=== PATIENT | female | born 1990 | race Caucasian/White ===

== ENCOUNTER 2017-08-24 13:20 | Outpatient (CLI) | payer BC ==
[~2017-08-24] VITALS: Ht 177.8 cm; Wt 94.8 kg
[~2017-08-24 13:20] MED LIST: BIRTH CONTROL; CET10 PO; CLIN300C99 PO; ETHI1TAB26 PO; FEXO1TAB39 PO; FLUT16SP19 NS; FLUTR; IBU600 PO; IBU800 PO; LOR5 PO; LOR5/325 PO; MULT-820 PO; NOR5/325 PO; PAN40 PO; PER PO; PHENA200 PO; PROM-100 PO; SERT25TA87 PO; SULF-170 PO
[2017-08-24 14:39] LABS: PLATELET COUNT, AUTOMATED 233 K/uL (150-450)
[2017-08-24 14:56] VITALS: BP 140/82
[2017-08-24 15:00] VITALS: BP 135/77; Ht 177.8 cm; Wt 94.8 kg
--- NOTE | 2017-08-24 18:49 | History & Physical ---
History of Present Illness Age of Patient: 27 : 2 Para or TPAL: 0 EDC per LMP: November 02, 2017 EDC per U/S: November 01, 2017 Estimated Gestational Age: 30.0 Chief Complaint Hypertension. 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 She had her BP's taken at work today, and they were 170/94 and 160/92. She's had a mild headache of only 1-2/10, and minimal RUQ abdominal pain, but denies scotomata. Fetus remains active. She arrived as requested on the OB unit for further evaluation by labs and serial BP's. History Patient's Blood Type: A Positive Rubella Status: Immune Group B Strep Screen: Unknown Obstetrical History: First resulted in a 6 week spontaneous Ab. Past Medical History: History of anxiety, takes Sertraline 75 mg daily. Has mild IBS, uses no medications. Laparoscopy for endometriosis 2008. L hand surgery after trauma 2015. Allergies: Coded Allergies: peanut (Verified Allergy, Mild, 07/15/15) cephalexin (Verified Adverse Reaction, Intermediate, rash/swelling, 07/18/15 ) Social History: Works as a physical therapist. . Denies use of alcohol, tobacco, or illicit drugs. Med Rec Home Meds Reported Medications Clindamycin Hcl (CLINDAMYCIN HCL) 300 Mg Capsule, 300 MG PO Q8H, #9 CAPSULE 07/18/15 Hydrocodone Bit/Acetaminophen (HYDROCODON-ACETAMINOPHEN 5-325) 1 Each Tablet, 1- 2 EACH PO Q4-6H Y for PAIN, #30 TAB 07/18/15 Fluticasone Prop 50 Mcg Ns (FLONASE 50 MCG NS) 16 Gm [place].susp, 2 SPRAYS NS QDAY, BOT 07/16/15 Sertraline Hcl (ZOLOFT) 25 Mg Tablet, 75 MG PO QDAY, TAB 07/15/15 Cetirizine Hcl (Zyrtec) 10 Mg Tab, 10 MG PO QDAY, 0 Refills 10/14/09 Exam General Exam Vital Signs Vital Signs Date Time Temp Pulse Resp B/P (MAP) Pulse Ox O2 Delivery O2 Flow Rate FiO2 08/24/17 15:00 98.7 78 22 135/77 (96) 93 Room Air BP's 129-149 systolic over 73-95 diastolic. General Apperance: Alert/Awake/No Acute Distress Neuro: No Gross deficits Eyes: Normal Extraocular Movement & Vison ENT: Normal, Moist Mucous Membranes Neck: No Masses Cardiovascular: Regular Rate and Rhythm Respiratory: No Respiratory Distress, Clear to Auscultation Abdomen: Gravid - Non-Tender : No CVA Tenderness Musculoskeletal: No Weakness/Pain Extremities: No Cyanosis,Clubbing or Edema, Reflexes (2-3+/4 and symmetric), No Tender Calves Integumentary: Skin Intact without Lesions or Rash Psychological: Alert & Oriented X3, Appropriate Mood & Affect Fetus FHT Category: I Medical Decision Making Data Points Result Diagram: 08/24/17 1433 08/24/17 1433 All lab studies within normal limits. VTE Prophylasis: Adult Pharmacological Contraindicati: Pt at Low Risk for VTE Mechanical Contraindications: Pt at Low Risk for VTE Assessment and Plan Problems: (1) Gestational hypertension w/o significant proteinuria in 3rd trimester Assessment & Plan: It appears that the patient's hypertension is not severe, and there is no evidence of severe features of pre-eclampsia. Will discharge home. Patient will keep her appointment with Dr. Chaidez as scheduled on August 26. Discussed warning signs again. (2) 30 weeks gestation of Copies to: BOYD GALARZA MD, MARK F MD Aug 24, 2017 18:49
== END 2017-08-24 19:10 | disposition home or self-care (01) ==
LOC: L&D 13:20 → OB 13:20 → UNDOADMOB 13:20 → OB 13:20 → L&D 19:10 → OB 19:10 → UNDODISOB 19:10 → EDSTATUS 08-25 10:26
PROVIDERS: ATTEND Obstetrics & Gynecology
DX: O13.3 Gestational [pregnancy-induced] hypertension without significant proteinuria, third trimester (principal); Z3A.30 30 weeks gestation of pregnancy
CPT/HCPCS: 36415; 59025; 81001; 82040; 82247; 82310; 82374; 82435; 82565; 82570; 82947; 83615; 84075; 84132; 84155; 84156; 84295; 84450; 84460; 84520; 85025; 99213; G0378; G0379

== ENCOUNTER 2017-09-13 15:29 | Observation (INO) | payer BC ==
[~2017-09-13] VITALS: Ht 177.8 cm; Wt 95.7 kg
[2017-09-13 15:30] VITALS: BP 177/87; BMI 30.3
[2017-09-13 16:13] LABS: PLATELET COUNT, AUTOMATED 230 K/uL (150-450)
[2017-09-13] MEDS ORDERED: FLUSH 10 ML SYR IVP SCH (17:00)
--- NOTE | 2017-09-13 18:36 | History & Physical ---
History of Present Illness Age of Patient: 27 : 2 Para or TPAL: 0010 EDC per LMP: November 02, 2017 Estimated Gestational Age: 32.6 Chief Complaint hypertension History of Present Illness The patient is a 27 year old 2 para 0010 admitted at 32 6/7 weeks estimated gestational age with an estimated date of delivery 09/13/17. Patient is admitted with complaint of hypertension. No vaginal bleeding. Good movement and occasional contractions. She has had a mild headache, no scotomata, no RUQ pain. She reported elevated blood pressures at work. She was evaluated for active labor. She had course complicated by gestational hypertension. Her record was reviewed. 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 Med Rec Home Meds Reported Medications Clindamycin Hcl (CLINDAMYCIN HCL) 300 Mg Capsule, 300 MG PO Q8H, #9 CAPSULE 07/18/15 Hydrocodone Bit/Acetaminophen (HYDROCODON-ACETAMINOPHEN 5-325) 1 Each Tablet, 1- 2 EACH PO Q4-6H Y for PAIN, #30 TAB 07/18/15 Fluticasone Prop 50 Mcg Ns (FLONASE 50 MCG NS) 16 Gm [place].susp, 2 SPRAYS NS QDAY, BOT 07/16/15 Sertraline Hcl (ZOLOFT) 25 Mg Tablet, 75 MG PO QDAY, TAB 07/15/15 Cetirizine Hcl (Zyrtec) 10 Mg Tab, 10 MG PO QDAY, 0 Refills 10/14/09 Review of Systems Constitutional: No Fever, No Weight Loss Neurological: No Syncope, No Confusion Eyes: No Vision Change, No Loss of Vision ENT: No Hearing Loss, No Sinus Congestion Cardiovascular: No Chest Pain, No Palpitations Respiratory: No Shortness of Breath, No Cough Gastrointestinal: No Nausea, No Vomiting Genitourinary: No Dysuria, No Hematuria Musculoskeletal: No Pain, No Sprain Psychiatric: No Depression, No Anxiety Exam General Exam Vital Signs Vital Signs Date Time Temp Pulse Resp B/P (MAP) Pulse Ox O2 Delivery O2 Flow Rate FiO2 09/13/17 15:30 97.5 93 18 177/87 (117) 95 Room Air General Apperance: Alert/Awake/No Acute Distress Neuro: No Gross deficits ENT: Normal Cardiovascular: Regular Rate and Rhythm Respiratory: Clear to Auscultation Abdomen: Gravid - Non-Tender, RUQ Non-Tender : Normal Musculoskeletal: No Weakness/Pain Extremities: No Edema Integumentary: Skin Intact without Lesions or Rash Psychological: Alert & Oriented X3 Uterine Contractions(Q min): 0 Fetus Heart Tones: 140 FHT Category: I Medical Decision Making Data Points Result Diagram: 09/13/17 1600 09/13/17 1600 Assessment and Plan Problems: (1) Gestational hypertension w/o significant proteinuria in 3rd trimester Assessment & Plan: labs stable blood pressures improved on rest. Celestone started for FLM. Will recheck labs in am and continue 24 hour urine. Discussed with Dr Packer, agrees with plan will observe and get serial blood pressures and may need transport for delivery at [facility] if signs or symptoms worsen. Copies to: DARLINE JUAREZ MD, JOHN MD Sep 13, 2017 18:36
[2017-09-13] MEDS ORDERED: BETAMETHASONE/ACETATE 6 MG/1ML IM SCH (19:15)
[2017-09-14] VITALS (8 sets, daily range): BP systolic 133–152; BP diastolic 72–85; Ht 177.8 cm; Wt 95.7 kg
[2017-09-14] MEDS ORDERED: PREN-127 PO (03:32)
[2017-09-14] MEDS ORDERED: SERT-184 PO (03:32)
[2017-09-14] MEDS ORDERED: CETI10CA8 PO (03:32)
[2017-09-14 06:24] LABS: PLATELET COUNT, AUTOMATED 233 K/uL (150-450)
--- NOTE | 2017-09-14 08:27 | Labor Progress Note ---
Labor Subjective Progress Notes Subjective Doing good this morning. Reports no headache, visual change, or RUQ pain. Not feeling any contractions. Feeling Movement?: Yes Vaginal Discharge/Fluid: No Bloody Show, No Clear Fluid, No Bloody Fluid, No Green Tinged Fluid, No Dark Green Fluid, No Mucous, No Small Amount, No Moderate Amount, No Large Amount, No Other Labor Pain: Mild Neurological: No Headache, No Other Eyes: No Visual Disturbances Labor Objective Vital Signs Vital Signs Date Time Temp Pulse Resp B/P (MAP) Pulse Ox O2 Delivery O2 Flow Rate FiO2 09/14/17 07:30 98.7 77 16 143/79 (100) 09/14/17 07:30 Room Air 09/13/17 15:30 95 General Exam General Appearance: Alert/Awake/No Acute Distress ENT: Normal Cardiovascular: Normal Rhythm & Peripheral Pulses : Normal Musculoskeletal: No Weakness/Pain Psychological: Alert & Oriented X3, Appropriate Mood & Affect Other Result Diagram: 09/14/17 0604 09/14/17 0604 Assessment and Plan Problems: (1) Gestational hypertension w/o significant proteinuria in 3rd trimester Assessment & Plan: Will get Betamethasone tonight. Will plan for discharge afterwards. NEISHA COOPER DO Sep 14, 2017 08:27
[2017-09-14] MEDS ORDERED: ACETAMINOPHEN 500 MG TAB PO PRN (09:10)
[2017-09-14] MEDS ORDERED: BETAMETHASONE/ACETATE 6 MG/1ML IM SCH (19:30)
--- NOTE | 2017-09-15 05:54 | Hospitalist Depart ---
Discharge Summary Reason for Hosp/Final Diag: (1) Gestational hypertension w/o significant proteinuria in 3rd trimester Status: Acute Hospital Course & Plan: Will get Betamethasone tonight. Will plan for discharge afterwards. Pt did have 384 grams of protein in her urine which is consistent with Pre-Eclampsia. Finished her betamethasone and is to follow up in the clinic 2 x/week for NST and bP checks. Departure Weight (Pounds): 211 Weight (Ounces): 0.0 Result Diagram: 09/14/1760309/14/17603 Condition: No Change Discharge: Home Discharge Instructions Home Meds Reported Medications Sertraline Hcl (SERTRALINE HCL) 50 Mg Tablet, 1 TAB PO QDAY, TAB 09/14/17 Cetirizine Hcl (ZYRTEC) 10 Mg Capsule, 10 MG PO QDAY, CAPSULE 09/14/17 Vits W-Ca,Fe,Fa(<1MG) ( VITAMINS) 1 Each Tablet, 1 EACH PO DAILY, TAB 09/14/17 Discontinued Reported Medications Clindamycin Hcl (CLINDAMYCIN HCL) 300 Mg Capsule, 300 MG PO Q8H, #9 CAPSULE 07/18/15 Hydrocodone Bit/Acetaminophen (HYDROCODON-ACETAMINOPHEN 5-325) 1 Each Tablet, 1- 2 EACH PO Q4-6H Y for PAIN, #30 TAB 07/18/15 Fluticasone Prop 50 Mcg Ns (FLONASE 50 MCG NS) 16 Gm [place].susp, 2 SPRAYS NS QDAY, BOT 07/16/15 Sertraline Hcl (ZOLOFT) 25 Mg Tablet, 75 MG PO QDAY, TAB 07/15/15 Cetirizine Hcl (Zyrtec) 10 Mg Tab, 10 MG PO QDAY, 0 Refills 10/14/09 Diet: Regular Activity: As Tolerated Special Instructions: Follow up at clinic with twice weekly appointments for nonstress tests and blood pressure checks each visit. Venous Thromboembolism VTE Risk Physician Assess for VTE Risk: Yes Patient's VTE Risk: Low VTE Diagnostic Test 2 Days Prior to Admit: No Antithrombotics Is Pt On Any Antithrombotics?: No NEISHA COOPER DO Sep 15, 2017 05:54
== END 2017-09-14 18:19 | disposition home or self-care (01) ==
LOC: INTOOBSV 15:29 → OB 15:29
PROVIDERS: ADMIT Obstetrics & Gynecology; ATTEND Obstetrics & Gynecology
DX: O13.3 Gestational [pregnancy-induced] hypertension without significant proteinuria, third trimester (principal)
CPT/HCPCS: 36415; 59025; 81001; 82570; 83615; 84156; 84550; 85025; 96372; G0378; G0379; J0702; 82040; 82247; 82310; 82374; 82435; 82565; 82947; 84075; 84132; 84155; 84295; 84450; 84460; 84520

== ENCOUNTER 2017-10-06 08:44 | Inpatient (IN) | payer BC ==
[~2017-10-06] VITALS: Ht 171.4 cm; Wt 96.2 kg
[~2017-10-06 08:44] MED LIST changes: +CETI10CA8 PO; +PREN-127 PO; +SERT-184 PO
[2017-10-06 09:30] VITALS: BP 155/91; Ht 171.4 cm; Wt 96.2 kg
[2017-10-06] MEDS ORDERED: ACETAMINOPHEN 500 MG TAB PO ONE (10:50)
[2017-10-06] MEDS ORDERED: FAMOTIDINE(*) 20MG/50ML PREMIX 50 ML IVPB PRN (12:42)
[2017-10-06] MEDS ORDERED: OXYTOCIN 30 UNIT/D5LR 500 ML 500 ML IV PRN (12:42)
[2017-10-06] MEDS ORDERED: ceFAZolin(*) 2GM/D5W 50ML 50 ML IVPB PRN (12:42)
[2017-10-06] MEDS ORDERED: MISOPROSTOL 25 MCG CAP PV PRN (12:45)
[2017-10-06] MEDS ORDERED: FLUSH 10 ML SYR IVP PRN (12:45)
[2017-10-06] MEDS ORDERED: LIDOCAINE/SOD BICARB 8.4% SYR SC PRN (12:45)
[2017-10-06] MEDS ORDERED: DINOPROSTONE 10 MG INSERT PV ONE (12:45)
[2017-10-06] MEDS ORDERED: METOCLOPRAMIDE 10 MG/2 ML SDV IVP PRN (12:45)
[2017-10-06] MEDS ORDERED: LIDOCAINE 1% LOCAL 300 MG/30ML INJ PRN (12:45)
--- NOTE | 2017-10-06 12:53 | History & Physical ---
History of Present Illness EDC per LMP: November 02, 2017 Estimated Gestational Age: 36.1 Chief Complaint Gush of fluid History of Present Illness 27yo at 36w1d presents for possible ROM this morning at 0008hrs. She reports some occasional UCx. She was diagnosed with preeclampsia weeks ago, initial GHTN at 30 weeks. She was being followed with labs and NSTs. She developed a headache last night that has not gone away. She has some blurry vision, but no spots in her vision. No abdominal pain outside of her lower pelvic cramping. No VB. PNR reviewed. PNC by [facility]. 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 Med Rec Home Meds Reported Medications Sertraline Hcl (SERTRALINE HCL) 50 Mg Tablet, 1 TAB PO QDAY, TAB 09/14/17 Cetirizine Hcl (ZYRTEC) 10 Mg Capsule, 10 MG PO QDAY, CAPSULE 09/14/17 Vits W-Ca,Fe,Fa(<1MG) ( VITAMINS) 1 Each Tablet, 1 EACH PO DAILY, TAB 09/14/17 Review of Systems Constitutional: No Fever Eyes: Vision Change Cardiovascular: No Chest Pain Respiratory: No Shortness of Breath, No Cough Gastrointestinal: No Nausea, No Vomiting, No Diarrhea Genitourinary: No Dysuria Musculoskeletal: No Pain Psychiatric: Anxiety, No Depression Exam General Exam Vital Signs VS reviewed General Apperance: Alert/Awake/No Acute Distress Neuro: No Gross deficits Eyes: Normal Extraocular Movement & Vison Cardiovascular: Regular Rate and Rhythm Respiratory: No Respiratory Distress, Clear to Auscultation Abdomen: Gravid - Non-Tender : Normal Musculoskeletal: No Weakness/Pain Extremities: No Cyanosis,Clubbing or Edema Integumentary: Skin Intact without Lesions or Rash Psychological: Alert & Oriented X3, Appropriate Mood & Affect Cervical Dialation: 0 Cervical Effacement (%): 0 Cervical Consistency: Firm Cervical Position: Posterior Station: -3 Presentation: Vertex Uterine Contractions(Q min): 0 Fetus Feeling Movement?: Yes FHT Category: I Medical Decision Making Data Points Result Diagram: 10/06/1734 10/06/1734 Pre-Admit Course Medical Record Review: Yes Assessment and Plan Problems: (1) Severe pre-eclampsia in third trimester Assessment & Plan: 27yo at 36w1d presents for possible ROM. Amnisure is negative. However, she does have preeclampsia with a constant headache despite Tylenol, hydration and food. I discussed her case with Dr. Martinez who recommends proceeding with delivery due to headache. Labs are WNL and BP is not severe. Will NOT start magnesium for now, but may need to add later if severe BP or headache is worsening. GBS is unknown, so will do penicillin in active labor. Will start with Cervadil for now. (2) 36 weeks gestation of SANTO DURHAM MD Oct 06, 2017 12:53
--- NOTE | 2017-10-06 13:54 | Labor Progress Note ---
Labor Subjective Progress Notes Subjective Pt is feeling well. Some mild cramping. Still with WALKER but not worsening and no other symptoms. Labor Objective Cervical Dialation: 1 Cervical Effacement (%): 60 Cervical Consistency: Moderate Cervical Position: Posterior Station: -1 Presentation: Vertex Uterine Contractions(Q min): 0 Fetus FHT Category: I General Exam General Appearance: Alert/Awake/No Acute Distress Psychological: Alert & Oriented X3, Appropriate Mood & Affect Other Result Diagram: 10/06/17 0934 10/06/17933 Assessment and Plan Problems: (1) Severe pre-eclampsia in third trimester Assessment & Plan: Cervadil placed by myself just now. Cvx: 60/-2/mod/ posterior. (2) 36 weeks gestation of SANTO DURHAM MD Oct 06, 2017 13:54
[2017-10-06] MEDS ORDERED: ZOLPIDEM TARTRATE 10 MG TAB PO PRN (20:55)
--- NOTE | 2017-10-06 21:01 | Labor Progress Note ---
Labor Subjective Progress Notes Subjective Pt is feeling some cramping. She has no VB/LOF. She is feeling well except still some headache. Labor Objective Vital Signs Vital Signs Date Time Temp Pulse Resp B/P (MAP) Pulse Ox O2 Delivery O2 Flow Rate FiO2 10/06/17 09:30 97.2 86 18 155/91 (112) 96 Room Air Fetus FHT Category: I General Exam General Appearance: Alert/Awake/No Acute Distress Cardiovascular: Normal Rhythm & Peripheral Pulses, Regular Rate and Rhythm Respiratory: No Respiratory Distress Abdomen: Gravid - Non-Tender Extremities: No Cyanosis,Clubbing or Edema, Reflexes (1+ DTR), No Tender Calves , No Clonus Psychological: Alert & Oriented X3, Appropriate Mood & Affect Other Result Diagram: 10/06/1793310/06/17933 Assessment and Plan Problems: (1) Severe pre-eclampsia in third trimester Assessment & Plan: Continue with Cervadil until 12hrs - 2am. Then will remove and reassess cervix. BP is looking good so far. Monitor closely. Pt had an anaphylactic reaction to Cephalexin two years ago, therefore, will use vancomycin for GBS prophylaxis. (2) 36 weeks gestation of SANTO DURHAM MD Oct 06, 2017 21:01
[2017-10-06] MEDS ORDERED: LR(*) 1000 ML BAG 1,000 ML ONE (22:33)
[2017-10-07] MEDS ORDERED: VANCOMYCIN 1 GM ADDVIAL 1 GM in NS(*) 0.9% 250 ML ADDVAN BAG 250 ML IVPB SCH
[2017-10-07] MEDS ORDERED: IV BOLUS 500 ML IVSOL IV ONE (02:00)
[2017-10-07] MEDS: fentaNYL CITR 100 MCG/2 ML AMP IVP PRN ×2 (02:05→03:14)
[2017-10-07] MEDS ORDERED: ONDANSETRON 4 MG/2 ML VIAL IVP PRN (02:15)
[2017-10-07] MEDS ORDERED: fentaNYL CITR 100 MCG/2 ML AMP IT PRN (02:40)
[2017-10-07] MEDS ORDERED: ePHEDrine 25 MG/5 ML DISP.SYR IVP PRN (02:40)
[2017-10-07] MEDS ORDERED: FENTANYL/ROPIVACAINE 100 ML BAG EPI PRN (02:40)
[2017-10-07] MEDS ORDERED: BUPIVACAINE 0.5% INJ 30ML VIAL EPI PRN (02:40)
[2017-10-07] MEDS ORDERED: LIDOCAINE/PF 2% 200MG/10ML AMP 200 MG/10 ML AMPUL EPI PRN (02:40)
[2017-10-07] MEDS ORDERED: LIDO/EPI 2% MPF 1:200,000 20ML EPI PRN (02:40)
[2017-10-07] MEDS ORDERED: BUPIVACAINE 0.25% MPF INJ EPI PRN (02:40)
--- NOTE | 2017-10-07 04:14 | Anesthesia OB Pre-Anes Eval ---
History of Present Illness Anesthesia Start Date: Oct 07, 2017 Anesthesia Start Time: 03:15 OB Anesthesia Diagnosis: induction - medical Current Complication: gestational hypertention Complications: None known EDC: November 02, 2017 : 2 Para: 0 Vital Signs: Vital Signs Date Time Temp Pulse Resp B/P (MAP) Pulse Ox O2 Delivery O2 Flow Rate FiO2 10/06/17 09:30 97.2 86 18 155/91 (112) 96 Room Air Pain Ratin Heart Tones: WNL Result Diagram: 10/07/17 0256 10/07/17 0256 Height (Inches): 67.50 Weight (Pounds): 212 BMI Calculated: 32.71 Past Medical History Surgical History: other (Laparoscopy) Previous Anesthesia: general Attended Childbirth Classes?: No Hx Anesthesia Reactions: No Hx Family Anesthesia Reaction: No Current Medications: pain medication (Fentenyl) Home Meds Reported Medications Sertraline Hcl (SERTRALINE HCL) 50 Mg Tablet, 1 TAB PO QDAY, TAB 09/14/17 Cetirizine Hcl (ZYRTEC) 10 Mg Capsule, 10 MG PO QDAY, CAPSULE 09/14/17 Vits W-Ca,Fe,Fa(<1MG) ( VITAMINS) 1 Each Tablet, 1 EACH PO DAILY, TAB 09/14/17 Allergies: Coded Allergies: peanut (Verified Allergy, Mild, 07/15/15) cephalexin (Verified Adverse Reaction, Intermediate, rash/swelling, 07/18/15 ) Anesthesia OB ROS Neurological: No migraines/headaches, No seizures, No neuropathy Eyes ROS: other (wearing glasses) ENT: Denies Tooth caps, Denies Loose teeth, Denies Chipped teeth, Denies Dentures, Denies Bridges, Denies Retainers, Denies Veneers, Denies Implants, Denies Tongue ring Pulmonary: No asthma, No smoker (pks/day/yrs) Airway Class: ll Cardiovascular ROS: No edema, No arrhythmia GI ROS: clear liquids Last Solids Date: Oct 06, 2017 Last Solids Time: 22:00 ROS: No Herpes, No STD(s), No Liver Disease, No Renal Disease Endocrine ROS: No diabetes, No gestational diabetes, No thyroid disorder Musculoskeletal ROS: No low back pain, No low back injury, No scoliosis ASA Classification: 2 Assessment and Plan Anesthesia Plan: CSE Assessment Past Medical, Surgical, Family and Obstetric Histories reviewed. Please see ACOG chart. Epidural anesthesia risks, complications and benefits explained to patient's satisfaction for labor and vaginal delivery and/or section. General anesthesia risks and benefits explained to patient's satisfaction. Questions invited, none asked. IV Fentenyl repeated so that pt. is able to tolerate maintaining position for epidural. AISLINN DOMINIQUE CRNA Oct 07, 2017 04:14
--- NOTE | 2017-10-07 04:19 | Procedure Note ---
Anesthetic Placement Note Anesthesia Plan: CSE Permit for Anesthesia Signed: Yes Anesthesia Technique: Patient Sitting Anesthesia Prep: Chlorhexidine Interspace: L 3-4 Local Anesthetic: 1% Lidocaine, 25 Gauge Needle Amount Local - cc's: 2 Anesthesia Needle: 17g Touhy/Schliff Anesthesia Attempts: 1 Loss of Resistance: Air Depth of JIAN (cm): 6 Epidural Needle Placement: No CSF, No Blood, No Parasthesia Intrathecal Needle: 27 Gauge Pencan Cerebral Spinal Fluid: Yes, Clear Catheter Insertion (cm): 8 Catheter Type: [place] - Spring Wound Epidural Dressing: Tegaderm, Tape, Adhesive [place] Anesthesia Tray: Lot Number ([id number]), Expiration Date (2018-04-12), Reference Number ([id number]) Anesthesia Medications: Intrathecal Dose: mcg Fentanyl (18), mg Marcaine MPF (1.75), Time (0327) Epidural Test Dose: 1.5 Lido/Epi (1:200,000), Dose - mL (2), Time (0350), Negative Epidural Loading Dose: 0.2% Ropivicaine, With Fentanyl 2mcg/ml, Dose - ml (5), Time (0351) Epidural Infusion: 0.2% Ropivicaine, With Fentanyl 2mcg/ml, Start Time: (0351) Epidural Pump Setting: Bolus Dose - mL (5), Lockout - Minutes (20), Maintenance Rate - mL/hr (6), Maximum per Hour - mL (21) Complications: None Comment: Vital signs stable. Patient comfortable and condition stable. Comfortable within less than 10 minutes. States she only slightly feels contractions. AISLINN DOMINIQUE CRNA Oct 07, 2017 04:19
--- NOTE | 2017-10-07 04:29 | Anesthesia Progress Note ---
Progress/Maintenance Anesthesia Note Date: Oct 07, 2017 Anesthesia Note Time: 04:25 Pain Intensity: 0 Pump: On Pump Rate (ML/HR): 6 Sensory Level: T-12 Motor Level: Bending Knees-Bilateral Dilatation: 2 Position: Left, Tilt Assessment and Plan Assessment Drinking fluids and visiting with friend. Encouraged to sleep. States she does not feel any contractions. AISLINN DOMINIQUE CRNA Oct 07, 2017 04:29
[2017-10-07] MEDS ORDERED: LR(*) 1000 ML BAG 1,000 ML IV PRN (05:10)
--- NOTE | 2017-10-07 07:15 | Labor Progress Note ---
Labor Subjective Progress Notes Subjective Pt was uncomfortable so got epidural and now she feels much better. Still with some headache but not worsening. No other preeclampsia symptoms. Labor Objective Vital Signs Vital Signs Date Time Temp Pulse Resp B/P (MAP) Pulse Ox O2 Delivery O2 Flow Rate FiO2 10/06/17 09:30 97.2 86 18 155/91 (112) 96 Room Air Vaginal Discharge/Fluid?: Clear Fluid Cervical Dialation: 4 Cervical Effacement (%): 90 Cervical Consistency: Soft Cervical Position: Mid Station: -1 Presentation: Vertex Uterine Contractions(Q min): 3 Uterine Contraction Strength: Moderate UC Resting Tone: Soft Fetus FHT Category: I General Exam General Appearance: Alert/Awake/No Acute Distress Cardiovascular: Regular Rate and Rhythm Respiratory: No Respiratory Distress Abdomen: Gravid - Non-Tender Extremities: No Cyanosis,Clubbing or Edema, No Clonus Integumentary: Skin Intact without Lesions or Rash Psychological: Alert & Oriented X3, Appropriate Mood & Affect Other Result Diagram: 10/07/17 0256 10/07/17 0256 Assessment and Plan Problems: (1) Severe pre-eclampsia in third trimester Assessment & Plan: Pt is now favorable after one dose of Cytotec. She experienced SROM right after my evaluation. Clear fluid. Vancomycin to be initiated as soon as available from pharmacy. (2) 36 weeks gestation of SANTO DURHAM MD Oct 07, 2017 07:15
[2017-10-07] MEDS ORDERED: VANCOMYCIN 1 GM ADDVIAL 1 GM in NS(*) 0.9% 250 ML ADDVAN BAG 250 ML IVPB ONE (07:45)
--- NOTE | 2017-10-07 10:08 | Anesthesia Progress Note ---
Progress/Maintenance Anesthesia Note Date: Oct 07, 2017 Anesthesia Note Time: 10:00 Pain Intensity: 0 Pump: On Pump Rate (ML/HR): 6 Sensory Level: T-12 Motor Level: Bending Knees-Bilateral Dilatation: 8 Position: Right, Tilt Assessment and Plan Assessment States she feels only "pressure". Able to move her legs well and has no problem turning side to side. AISLINN DOMINIQUE CRNA Oct 07, 2017 10:08
[2017-10-07] MEDS ORDERED: NS(*) 0.9% 1000 ML BAG 1,000 ML PV PRN (10:33)
--- NOTE | 2017-10-07 10:36 | Labor Progress Note ---
Labor Subjective Progress Notes Subjective comfortable with epidural Vaginal Discharge/Fluid: No Bloody Show Labor Pain: Comfortable Labor Objective Vital Signs Vital Signs Date Time Temp Pulse Resp B/P (MAP) Pulse Ox O2 Delivery O2 Flow Rate FiO2 10/06/17 09:30 97.2 86 18 155/91 (112) 96 Room Air Cervical Dialation: 8 Cervical Effacement (%): 90 Cervical Consistency: Soft Cervical Position: Anterior Station: 0 Presentation: Vertex Uterine Contractions(Q min): 4 Fetus Heart Tones: 150 Heart Tone Variabilty: Moderate FHT Decelerations: Variable FHT Category: II Other Result Diagram: 10/07/17 0256 10/07/17 0256 Assessment and Plan Problems: (1) 36 weeks gestation of Assessment & Plan: variable decelerations with fhts, iupc placed garth amnioinfuse DARLINE JUAREZ MD Oct 07, 2017 10:36
--- NOTE | 2017-10-07 14:14 | Anesthesia Progress Note ---
Progress/Maintenance Anesthesia Note Date: Oct 07, 2017 Anesthesia Note Time: 14:15 Pain Intensity: 5 Pump: On Pump Rate (ML/HR): 6 Sensory Level: T-12 Motor Level: Bending Knees-Bilateral Dilatation: 9 Position: Right, Tilt Drug Bolus: 0.5% Marcaine (4 ml), Other (Fentenyl 85 mcgs) Assessment and Plan Assessment Pt. states that is feeling more pain in left groin. RN pushed her epidural pump button and pt. feels that did not provide any relief. Manual bolus given. AISLINN DOMINIQUE CRNA Oct 07, 2017 14:14
[2017-10-07] MEDS ORDERED: HYDROCORTISONE 2.5% CR 30GM TB PR PRN (16:05)
[2017-10-07] MEDS ORDERED: HYDROmorphone HCL 2 MG TAB PO PRN (16:05)
[2017-10-07] MEDS ORDERED: LANOLIN OINT 7 GM TUBE TP PRN (16:05)
[2017-10-07] MEDS ORDERED: ACETAMINOPHEN 325 MG TAB PO PRN (16:05)
[2017-10-07] MEDS ORDERED: MAGNESIUM HYDROXIDE* 30ML UDCP PO PRN (16:05)
--- NOTE | 2017-10-07 16:05 | OB Delivery Note ---
Delivery Note Vaginal Delivery Type: Spont. Vaginal Delivery Delivery Date: Oct 07, 2017 Delivery Time: 15:33 Estimated Gestational Age(wks): 36.1 Delivery Anesthesia: Epidural Sex: Male Weight (gms): 2572 [place] Apgars: 1 Minute (8), 5 Minute (9) Repair Needed: Laceration, Superficial, Vaginal Estimated Blood Loss: 400 Notes: IOL FOR PREECLAMPSIA, HAD HEADACHE. CERVADIL AND PITOCIN USED FOR AUGMENTATION. AROM, CLEAR FLUID. PROGRESSED TO COMPLETE ALLOWED TO PUSH AFTER LABORING DOWN AND PUSHED EFFECTIVELY. DELIVERED OVER INTACT PERINEUM. REPAIRED WITH 3-0 VICRYL NO COMPLICATIONS. Air Twist Operator in Attendence: Yes Copies to: DARLINE JUAREZ MD, JOHN MD Oct 07, 2017 16:05
--- NOTE | 2017-10-07 16:18 | Anesthesia Progress Note ---
Progress/Maintenance Anesthesia Note Date: Oct 07, 2017 Anesthesia Note Time: 15:45 Pain Intensity: 0 Pump: Off Motor Level: Bending Knees-Bilateral Dilatation: 10 Position: Semi-Fowlers Drug Bolus: 0.5% Marcaine (4 ml) Assessment and Plan Assessment Vocal with pushing with contractions, but pt. states it helps her push. Excellent tolerance of delivery and repair. Patient instructed the first ambulation is to be with help of nursing staff. Instructed to preform deep knee bends at bedside before walking. Empty syringe attached to epidural catheter and RN agrees to remove with pt's ambulation. Anesthesia Stop Day: Oct 07, 2017 Anesthesia Stop Time: 15:45 AISLINN DOMINIQUE CRNA Oct 07, 2017 16:18
[2017-10-07] MEDS: IBUPROFEN 800 MG TAB PO SCH (17:33)
[2017-10-07] MEDS ORDERED: DEXTROSE 37.5 GM GEL..GRAM. PO PRN (18:05)
[2017-10-07] MEDS ORDERED: LABETALOL HCL 100 MG/20ML VIAL IVP PRN (19:15)
[2017-10-07 19:30] VITALS: BP 138/78
[2017-10-07] MEDS: GLYCERIN/WITCH HAZEL LEAF 1 PK TP PRN (21:06)
[2017-10-07] MEDS: BENZOCAINE 20% 60 ML BTL TP PRN (21:06)
[2017-10-07] MEDS: DOCUSATE CALCIUM 240 MG CAP PO SCH (21:56)
[2017-10-07] MEDS ORDERED: LR(*) 1000 ML BAG 1,000 ML ONE (21:59)
[2017-10-07 22:30] VITALS: BP 115/66
[2017-10-08] VITALS (7 sets, daily range): BP systolic 121–143; BP diastolic 64–85
[2017-10-08] MEDS: IBUPROFEN 800 MG TAB PO SCH ×3 (01:21→16:47)
--- NOTE | 2017-10-08 07:38 | OB/GYN Progress Note ---
OB Subjective Progress Notes Subjective Pain controlled, Tolerating diet and activity. Baby . Normal lochia. GI: POS Flatus, NEG Nausea, NEG Vomiting Neurological: No Headache OB Objective Physical Exam Vital Signs Date Time Temp Pulse Resp B/P (MAP) Pulse Ox O2 Delivery O2 Flow Rate FiO2 10/08/17 05:00 97.0 70 18 124/70 (88) Room Air 10/08/17 00:15 92 General Appearance: Alert/Awake/No Acute Distress Neurological: No Gross deficits Eyes: Normal Extraocular Movement & Vison Cardiovascular: Regular Rate and Rhythm Respiratory: No Respiratory Distress, Clear to Auscultation Abdomen: Fundus Firm Extremities: No Cyanosis,Clubbing or Edema, No Clonus, No Edema Integumentary: Skin Intact without Lesions or Rash Psychological: Alert & Oriented X3, Appropriate Mood & Affect Result Diagram: 10/07/17 0256 10/07/17 0256 Assessment and Plan Problems: (1) 36 weeks gestation of (2) care following vaginal delivery Assessment & Plan: Pain controlled, Tolerating diet and activity. Baby . Normal lochia. DARLINE JUAREZ MD Oct 08, 2017 07:38
[2017-10-08] MEDS ORDERED: IBUP800T37 PO (08:16)
[2017-10-08] MEDS ORDERED: HYDR2TAB4 PO (08:16)
--- NOTE | 2017-10-08 08:17 | OB/GYN Discharge Summary ---
Discharge Summary Reason for Hosp/Final Diag: (1) 36 weeks gestation of (2) care following vaginal delivery Hospital Course & Plan: IOL, vag delivery on day 2, Pain controlled, Tolerating diet and activity. Baby . Normal lochia. Lates Vital Signs Vital Signs Date Time Temp Pulse Resp B/P (MAP) Pulse Ox O2 Delivery O2 Flow Rate FiO2 10/08/17 05:00 97.0 70 18 124/70 (88) Room Air 10/08/17 00:15 92 Weight (Pounds): 212 Weight (Ounces): 0.0 Result Diagram: 10/08/17 0700 10/08/17 07 Condition: Improved Discharge: Home, Self Usp Meds Active Scripts Ibuprofen (IBUPROFEN) 800 Mg Tablet, 1 TAB PO Q8H, #30 TAB 0 Refills Take with food every 8 hours. Prov:DARLINE ADAMS MD 10/08/17 Hydromorphone Hcl (HYDROMORPHONE HCL) 2 Mg Tablet, 2-4 MG PO Q4H for PAIN, #20 TAB 0 Refills Prov:DARLINE ADAMS MD 10/08/17 Reported Medications Sertraline Hcl (SERTRALINE HCL) 50 Mg Tablet, 1 TAB PO QDAY, TAB 09/14/17 Cetirizine Hcl (ZYRTEC) 10 Mg Capsule, 10 MG PO QDAY, CAPSULE 09/14/17 Vits W-Ca,Fe,Fa(<1MG) ( VITAMINS) 1 Each Tablet, 1 EACH PO DAILY, TAB 09/14/17 Follow up with: Dr. Adams [phone] Follow up in: 6 wks PP or PO, 5-7 days Discharge Diet: As Tolerates Discharge Activity: Pelvic Rest Copies to: DARLINE ADAMS MD, JOHN MD Oct 08, 2017 08:17
[2017-10-08] MEDS: DOCUSATE CALCIUM 240 MG CAP PO SCH ×2 (08:36→20:20)
[2017-10-08] MEDS: MULTIVITAMINS (PRENATAL) TAB PO SCH (08:36)
--- NOTE | 2017-10-08 11:01 | Anesthesia Post Eval Note ---
Anesthesia Post Eval Note Stable, afebrile. Pt able to participate in Eval: Yes Cardiovascular Status: Satisfactory Respiratory Status: Satisfactory Pain Managment: Satisfactory PO Nausea/Vomiting: Satisfactory Temperature Management: Satisfactory Mental Status: Satisfactory, Alert, Oriented X3 Post-Op Hydration Status: Satisfactory, Tolerating PO Well, Voiding w/o Difficulty Anesthesia Type: CSE Anesthesia Tolerance: Ambulatory without symptoms PDPH, no apparent anesthesia complications. SUSAN COREA CRNA Oct 08, 2017 11:01
[2017-10-08] MEDS ORDERED: MEASLES,MUMP,RUBELLA VAC 0.5ML SUBQ ONE (16:05)
[2017-10-08] MEDS ORDERED: INFLUENZA VIRUS VAC 0.5 ML SYR IM ONLY ONE (16:05)
[2017-10-08] MEDS ORDERED: DIPHTH/TETANUS/ACEL. PERTUSSIS IM ONLY ONE (16:05)
[2017-10-09 01:06] VITALS: BP 144/80
[2017-10-09] MEDS: IBUPROFEN 800 MG TAB PO SCH ×3 (01:08→16:30)
[2017-10-09 04:05] VITALS: BP 138/73
[2017-10-09 07:50] VITALS: BP 134/82
[2017-10-09] MEDS: MULTIVITAMINS (PRENATAL) TAB PO SCH (09:05)
[2017-10-09] MEDS: DOCUSATE CALCIUM 240 MG CAP PO SCH (09:05)
--- NOTE | 2017-10-09 10:05 | OB/GYN Progress Note ---
OB Subjective Progress Notes Subjective Pain controlled, Tolerating diet and activity. Baby . Normal lochia. GI: POS Flatus, NEG Nausea, NEG Vomiting : Voiding Well Pain: Mild OB Objective Physical Exam Vital Signs Date Time Temp Pulse Resp B/P (MAP) Pulse Ox O2 Delivery O2 Flow Rate FiO2 10/09/17 04:05 72 18 138/73 (94) Room Air 10/09/17 01:06 97.4 10/08/17 00:15 92 Intake and Output 10/10/17 07:00 Intake Total 120 ml Balance 120 ml Intake Oral 120 ml General Appearance: Alert/Awake/No Acute Distress Neurological: No Gross deficits Eyes: Normal Extraocular Movement & Vison Cardiovascular: Regular Rate and Rhythm Respiratory: No Respiratory Distress, Clear to Auscultation Abdomen: Fundus Firm Extremities: No Cyanosis,Clubbing or Edema, No Clonus, No Edema Integumentary: Skin Intact without Lesions or Rash Psychological: Alert & Oriented X3, Appropriate Mood & Affect Result Diagram: 10/08/17 0700 10/08/17 0700 Assessment and Plan Problems: (1) 36 weeks gestation of (2) care following vaginal delivery Assessment & Plan: Pain controlled, Tolerating diet and activity. Baby . Normal lochia. DARLINE JUAREZ MD Oct 09, 2017 10:05
[2017-10-09 13:20] VITALS: BP 151/93
[2017-10-09 13:42] VITALS: BP 167/94
[2017-10-09] MEDS ORDERED: NIFEdipine XL 30 MG TABCR PO ONE (13:45)
[2017-10-09 15:20] VITALS: BP 145/85
[2017-10-09] MEDS: BENZOCAINE 20% 60 ML BTL TP PRN (16:30)
[2017-10-09] MEDS: GLYCERIN/WITCH HAZEL LEAF 1 PK TP PRN (16:30)
== END 2017-10-09 16:30 | disposition home or self-care (01) | DRG 775 ==
LOC: OB 08:44
PROVIDERS: ADMIT Obstetrics & Gynecology; ATTEND Obstetrics & Gynecology
PROC: 10907ZC Drainage of Amniotic Fluid, Therapeutic from Products of Conception, Via Natural or Artificial Opening (ICD-10-PCS; 2017-10-06)
PROC: 10E0XZZ Delivery of Products of Conception, External Approach (ICD-10-PCS; principal; 2017-10-07)
PROC: 0HQ9XZZ Repair Perineum Skin, External Approach (ICD-10-PCS; 2017-10-07)
DX: O14.14 Severe pre-eclampsia complicating childbirth (principal); O76 Abnormality in fetal heart rate and rhythm complicating labor and delivery; O99.344 Other mental disorders complicating childbirth; O99.62 Diseases of the digestive system complicating childbirth; O70.0 First degree perineal laceration during delivery; F41.9 Anxiety disorder, unspecified; K58.9 Irritable bowel syndrome, unspecified; Z37.0 Single live birth; Z3A.36 36 weeks gestation of pregnancy; Z88.8 Allergy status to other drugs, medicaments and biological substances; Z91.010 Allergy to peanuts
CPT/HCPCS: 36415; 82040; 82247; 82310; 82374; 82435; 82565; 82947; 84075; 84112; 84132; 84155; 84295; 84450; 84460; 84520; 85027; 86850; 86900; 86901; 87081; A4338; A4344; C1726; J2405; J2590; J3010; J3370; J3490; J7030; J7050; J7120

== ENCOUNTER → 2018-01-30 | Outpatient (REF) | payer BC ==
[2017-10-06 09:30] VITALS: BMI 32.7
[~2018-01-30] MED LIST changes: +HYDR2TAB4 PO; +IBUP800T37 PO
== END ==
LOC: ZZSENDIN 10:22
PROVIDERS: ATTEND Ophthalmology
DX: C44.112 Basal cell carcinoma of skin of right eyelid, including canthus (principal)
CPT/HCPCS: 88305

== ENCOUNTER → 2018-03-23 | Outpatient (CLI) | payer BC ==
[2017-10-06 09:30] VITALS: BMI 32.7
--- NOTE | 2018-03-23 10:29 | RADIOLOGY IMAGING REPORT ---
FACILITY: [facility] - [place] PATIENT NAME: Breanne Louie : 1990 MR: [id number] V: [id number] EXAM DATE: ORDERING PHYSICIAN: TIFFANIE LACEY TECHNOLOGIST: Location: [facility] [place] Patient: Breanne Louie : 1990 Visit/Account:[id number] Date of Sevice: 03/23/2018 GALLBLADDER HISTORY: Intermittent pain for one month, worse after eating COMPARISON: CT abdomen pelvis November 16, 2013 FINDINGS: Gallbladder: At least one shadowing stone is identified within the gallbladder. The gallbladder wall does not appear thickened and there is a negative Dave sign by technologist notation Liver: There is increased echogenicity throughout liver which can be seen with fatty infiltration or other infiltrative process Common duct: Normal, 2.6 mm diameter. Pancreas: Partially obscured by bowel, visualized aspects unremarkable. Right kidney: Right kidney appears unremarkable measuring 10.8 cm in length Upper abdominal aorta and IVC: Patent. Ascites: None visualized. IMPRESSION: Cholelithiasis although no evidence of gallbladder wall thickening or positive Dave sign or biliary ductal dilatation Mild increased echogenicity throughout liver which can be seen with fatty infiltration or other infil trative process Report Dictated By: Mckenzie Munoz MD at 03/23/2018 9:53 AM Report E-Signed By: Mckenzie Munoz MD at 03/23/2018 10:25 AM WSN:[id number]
== END ==
LOC: US 02:27
PROVIDERS: ATTEND Obstetrics & Gynecology
DX: K80.20 Calculus of gallbladder without cholecystitis without obstruction (principal)
CPT/HCPCS: 76705

== ENCOUNTER 2018-05-25 03:07 | Day surgery (SDC) | payer BC ==
[2017-10-06 09:30] VITALS: Ht 177.8 cm; Wt 85.3 kg
[2018-05-25] VITALS (12 sets, daily range): BP systolic 83–128; BP diastolic 49–79
[~2018-05-25] VITALS: Ht 177.8 cm; Wt 85.3 kg
[~2018-05-25 03:07] MED LIST changes: +LAN30PT PO
[2018-05-25] MEDS ORDERED: LEVOFLOXACIN/D5W*500 MG/100 ML 100 ML IVPB ONE (11:15)
[2018-05-25] MEDS ORDERED: metroNIDAZOLE* 500MG/100ML BAG 100 ML IVPB ONE (11:15)
[2018-05-25] MEDS ORDERED: PREGABALIN 150 MG CAPSULE PO ONE (11:15)
[2018-05-25] MEDS ORDERED: INDOCYANINE GREEN 25 MG VIAL IVP ONE (11:15)
[2018-05-25] MEDS ORDERED: AMPICILLIN/SULBACT (*) 3 GM VL 3 GM in NS(*) 0.9% 100 ML BAG 100 ML IVPB ONE (11:15)
[2018-05-25] MEDS ORDERED: FAMOTIDINE 20 MG TAB PO ONE (11:15)
[2018-05-25] MEDS ORDERED: MIDAZOLAM 2 MG/2 ML VIAL IVP PRN (11:15)
[2018-05-25] MEDS ORDERED: LIDOCAINE/SOD BICARB 8.4% SYR ID ONE (11:15)
[2018-05-25] MEDS ORDERED: ACETAMINOPHEN 500 MG TAB PO ONE (11:15)
[2018-05-25] MEDS ORDERED: fentaNYL CITR 250 MCG/5 ML AMP ONE (12:47)
[2018-05-25] MEDS ORDERED: DEXAMETHASONE SOD PHOS 10MG/ML ONE (12:49)
[2018-05-25] MEDS ORDERED: ONDANSETRON 4 MG/2 ML VIAL ONE ×2 (12:49→18:00)
[2018-05-25] MEDS ORDERED: LIDOCAINE MPF 1% 5 ML VIAL ONE (12:49)
[2018-05-25] MEDS ORDERED: PROPOFOL EMUL(*) 10MG/ML 20 ML 20 ML ONE (12:49)
[2018-05-25] MEDS ORDERED: HALOPERIDOL LACT 5 MG/ML VIAL IM ONE (12:53)
[2018-05-25 13:19] LABS: PLATELET COUNT, AUTOMATED 257 K/uL (150-450)
[2018-05-25] MEDS: NORMOSOL R SOLN(*) 1000 ML BAG 1,000 ML IV PRN ×2 (13:45→15:30)
[2018-05-25] MEDS ORDERED: ROPIVACAINE 0.5% 20 ML VIAL ONE (13:47)
[2018-05-25] MEDS ORDERED: KETAMINE HCL 200 MG/20 ML MDV ONE (14:04)
[2018-05-25] MEDS ORDERED: SUGAMMADEX SOD 200 MG/2 ML SDV ONE (14:04)
[2018-05-25] MEDS ORDERED: SCOPOLAMINE 1.5 MG PATCH TD ONE ×2 (14:06→14:12)
[2018-05-25] MEDS ORDERED: DOCU-416 PO (15:32)
[2018-05-25] MEDS ORDERED: OXYC-854 PO (15:32)
--- NOTE | 2018-05-25 15:34 | Short(Outpt) Discharge Summary ---
Discharge Summary Reason for Hosp/Final Diag: (1) Cholelithiasis Status: Chronic Hospital Course & Plan: Robotic emmanuel completed without problems. Departure Discharge to: Home, Self Care Discharge Instructions Home Meds Active Scripts Docusate Sodium (COLACE) 100 Mg Capsule, 1 CAP PO BID, #30 CAP 0 Refills TAKE WITH A FULL GLASS OF WATER Prov:DARLINE BATISTA MD 05/25/18 Oxycodone Hcl/Acet 5/325 Mg (ENDOCET 5-325 TABLET) 1 Each Tablet, 1 TAB PO Q4H PRN for PAIN, #20 TAB 0 Refills Prov:DARLINE BATISTA MD 05/25/18 Reported Medications Sertraline Hcl (SERTRALINE HCL) 50 Mg Tablet, 1.5 TAB PO QDAY, TAB 09/14/17 Cetirizine Hcl (ZYRTEC) 10 Mg Capsule, 10 MG PO QDAY, CAPSULE 09/14/17 Vits W-Ca,Fe,Fa(<1MG) ( VITAMINS) 1 Each Tablet, 1 EACH PO DAILY, TAB 09/14/17 Discontinued Scripts Lansoprazole (PREVACID) 30 Mg Capsule., 1 CAP PO QDAY, #30 CAP 0 Refills Prov:DARLINE BATISTA MD 04/14/18 Follow up Referrals: General Surgery - 06/14/18 @ Surgery, General with DARLINE BATISTA MD You have a follow up appointment scheduled with Dr. Batista on 06/14/18, at 4:30pm. Diet: Regular Activity: As Tolerated Special Instructions: You may remove the white surgical dressings on 05/27/18, then you can shower. After showering, leave the incisions open to air but leave the steristrips in place until they fall off on their own. Do not immerse the incisions for 2 weeks. Problem Qualifiers (1) Cholelithiasis: Cholelithiasis location: gallbladder Cholecystitis presence: without cholecystitis Biliary obstruction: without biliary obstruction Qualified Codes: K80.20 - Calculus of gallbladder without cholecystitis without obstruction DARLINE BATISTA MD May 25, 2018 15:34
--- NOTE | 2018-05-25 15:40 | Post Operative Progress Note ---
Post Operative Progress Note Date: May 25, 2018 Time: 15:35 Surgeon: Danielle Dictation number: [id number] Anesthesia: GETA by Dr. Gonzáles Pre-Op Diagnosis: Symptomatic Cholelithiasis Post-Op Diagnosis: DONOVAN Findings: C/W dx Procedure(s): Robotic cholecystectomy Specimen Removed:(May be N/A): GB and contents Complications: None Fluids: See anesthesia record Estimated Blood Loss: Minimal Date OP Note Dictated: May 25, 2018 Time OP Note Dictated: 15:35 DARLINE BATISTA MD May 25, 2018 15:40
[2018-05-25] MEDS ORDERED: fentaNYL CITR 100 MCG/2 ML AMP ONE (15:42)
--- NOTE | 2018-05-25 17:17 | OPERATIVE REPORT 1 ---
EVENT DATE: May 25, 2018 SURGEON: Kaveh Santos MD ANESTHESIOLOGIST: Roshan Gonzáles MD ANESTHESIA: General endotracheal anesthesia. PREOPERATIVE DIAGNOSIS Symptomatic gallstones. POSTOPERATIVE DIAGNOSIS Symptomatic gallstones. PROCEDURE PERFORMED Robotic cholecystectomy. COMPLICATIONS None. CONDITION Stable. BLOOD LOSS Minimal. INDICATIONS This is a 28-year-old female who presented to my office with postprandial bloating and nausea, and she was found on ultrasound to have gallstones. She was tried on PPI therapy and had some improvement in her symptoms, but they did not resolve. She was requesting to have her gallbladder removed. DESCRIPTION OF PROCEDURE The patient was brought to the operating room and placed supine on the operating table. General endotracheal anesthesia was administered, and her abdomen was prepped and draped in a sterile fashion. Timeout was completed, and I injected the infraumbilical skin with 0.5% ropivacaine plain. I then made a curvilinear smiley face type incision in the infraumbilical rim and dissected through the dermis and subcutaneous fat. I identified the midline fascia and made a vertical incision in the midline fascia, grasped the fascial edges with Jose A clamps, and retracted the fascia towards the ceiling away from the underlying viscera. I then penetrated the peritoneal cavity with my finger. I placed two interrupted 0 Vicryl sutures transversely through the vertical fascial defect and inserted a 12 mm robotic Slvaa-type port through this wound, securing it in place with sutures. I insufflated the abdomen to a pressure of 15 mmHg and then inserted the 30-degree angle robotic camera through this port. Under direct visualization, I placed an 8 mm robotic port in the right mid abdomen in about the mid clavicular line and then two 8 mm robotic ports in the left abdomen, one in the anterior axillary line just below the ribs and the second about half way between the umbilicus and this port. Next, the patient was placed in reverse Trendelenburg and planed towards her left. The bed was lowered as low as it would go. The robot was brought in, docked, and targeted, instruments inserted, and I scrubbed out and went to the console. I grasped the fundus of the gallbladder and retracted it towards the patient's right shoulder. I identified the infundibulum and retracted this towards the patient's right hip. I used the hook and divided the peritoneum over the infundibulum and up the medial and lateral aspects of the gallbladder. I stripped this down and dissected around the cystic duct and cystic artery and cleaned them off. The cystic artery was caught in all of the tissue and did not clearly dissect free. Actually, I divided it inadvertently with the hook as I was going through these tissues, but it did not bleed, although I could see it pulsating, and so I did grasp it and put a clip on the part adjacent to the hepatic artery. The duct was cleaned off circumferentially, and I used Firefly to confirm that I was well away from the common bile duct. I then clipped the cystic duct with three clips on the portion that would stay in the patient and then one clip at the infundibulum- cystic duct junction and divided the duct between clips. I then used the hook electrocautery to dissect the gallbladder away from the gallbladder fossa, and then the gallbladder was placed in a surgical specimen retrieval bag and removed from the abdomen through the umbilical port site. I then irrigated and dried the right upper quadrant, inspected the cystic duct and artery stumps and the gallbladder fossa for any bleeding or bile leaks, and there were none. I removed all the irrigation fluid from the right upper quadrant. All the instruments were then removed and the robot undocked. The patient's abdomen was desufflated. The ports were removed, and I placed another [id number] 0 Vicryl suture transversely through the vertical fascial defect and tied all three of these down with good reapproximation of the fascial edges. The skin at each port site was closed with 4-0 Monocryl subcuticular suture. Skin was cleaned and dried, and Steri-Strips were applied, followed by sterile surgical dressings. The patient was awakened, extubated in the operating room, and transported to the recovery room in stable condition having tolerated the procedure without any apparent problems. JASMYN
== END 2018-05-25 16:25 | disposition home or self-care (01) ==
LOC: OR 03:07
PROVIDERS: ATTEND Surgery
DX: K80.80 Other cholelithiasis without obstruction (principal)
CPT/HCPCS: 36415; 47562; 81025; 85025; J1100; J1630; J2001; J2250; J2405; J2704; J2795; J3010; J3490; 88304